=== PATIENT | female | born 1975 | race Caucasian/White ===

== ENCOUNTER 2016-12-23 15:52 | Emergency (ER) | payer SELFPAY ==
[~2016-12-23] VITALS: Ht 175.3 cm; Wt 79.3 kg
[2016-12-23 16:11] VITALS: BP 120/81; PULSE 58; RESP 16; TEMP 98.2; O2SAT 99
[2016-12-23] MEDS ORDERED: GELFOAM SIZE 100 TOPICAL ONE (16:45)
--- NOTE | 2016-12-23 16:48 | PD ---
HPI Chief Complaint: Laceration/Skin Injury Time Seen by Provider: 16:30 Travel History International Travel<30 days: No Contact w/Intl Traveler<30days: No Traveled to known affect area: No History of Present Illness HPI 41-year-old female percents emergency department for evaluation of left thumb laceration caused by vegetable shredder prior to arrival. Patient reports pain at the site of the laceration. She applied a pressure dressing right away but was unable to get the bleeding to stop prompting her to come into the emergency department for evaluation. She denies numbness or tingling in the thumb. She has full range of motion. There is a 1 cm avulsion laceration to the medial aspect of the thumb. [facility] Past Medical History Medical History: Denies Significant Hx Diminished Hearing: No Tetanus Vaccination: Unknown ?: Not LMP: 2 weeks ago Past Surgical History Other Surgery: Yes (BACK SX. AND LEFT THUMB RECONSTRUCTION) Social History Alcohol Use: Yes (SOC) Tobacco Use: No Substance Use: No Allergies-Medications (Allergen,Severity, Reaction): Coded Allergies: Penicillin (Verified Allergy, Severe, sob, 12/23/16) Reported Meds & Prescriptions Reported Meds & Active Scripts Active No Active Prescriptions or Reported Medications Review of Systems Except as stated in HPI: all other systems reviewed are Neg Physical Exam Narrative GENERAL: Well-nourished, well-developed patient. SKIN: Focused skin assessment warm/dry. 1 cm Avulsion laceration distal medial aspect left thumb. The site is actively bleeding. HEAD: Normocephalic. EYES: No scleral icterus. No injection or drainage. NECK: Supple, trachea midline. No JVD or lymphadenopathy. CARDIOVASCULAR: Regular rate and rhythm without murmurs, gallops, or rubs. RESPIRATORY: Breath sounds equal bilaterally. No accessory muscle use. GASTROINTESTINAL: Abdomen soft, non-tender, nondistended. MUSCULOSKELETAL: No cyanosis, or edema. Left thumb: 1 cm avulsion laceration. Full range of motion. Brisk cap refill. Extremities neurovascular intact. BACK: Nontender without obvious deformity. No CVA tenderness. Data Data Last Documented VS Vital Signs Date Time Temp Pulse Resp B/P Pulse Ox O2 Delivery O2 Flow Rate FiO2 12/23/16 16:11 98.2 58 16 120/81 99 Orders Gelfoam 100 Top (Gelfoam 100 Top) (12/23/16 16:45) MDM Medical Decision Making Medical Screen Exam Complete: Yes Emergency Medical Condition: Yes Differential Diagnosis Laceration, avulsion laceration Narrative Course 41-year-old female presents emergency department for evaluation of laceration to left thumb caused by vegetable shredder. On examination there is a 1 cm avulsion laceration to the thumb. The site is actively bleeding. Due to the nature of the wound cannot be sutured closed. Hemostasis obtained with Surgicel /foam and dressing. Discussed wound care with patient. She verbalizes understanding. She agrees to follow-up with primary care doctor for recheck of this wound. She was also given the name and number for hand surgeon. If she develops any competitions with healing. Procedures Procedure Narrative Surgicel foam applied to laceration. Hemostasis achieved. Dressing applied. Diagnosis Primary Impression: Laceration of left thumb Qualified Code: S61.012A - Laceration of left thumb without foreign body, nail damage status unspecified, initial encounter Referrals: Doris Mclaughlin MD Primary Care Physician Scripts Clindamycin 300 Mg [id number] Mg PO TID #21 CAP Ref 0 Prov:Marianna Phelps 12/23/16 Disposition: 01 DISCHARGE HOME Condition: Stable Marianna Phelps Dec 23, 2016 16:48
[2016-12-23] MEDS ORDERED: CLIN1CAP6 PO (17:21)
== END 2016-12-23 17:23 | disposition home or self-care (01) ==
LOC: PHEFT 15:52
DX: S61.012A Laceration without foreign body of left thumb without damage to nail, initial encounter (principal); W27.4XXA Contact with kitchen utensil, initial encounter
CPT/HCPCS: 12001